=== PATIENT | female | born 1995 | race Caucasian/White ===

== ENCOUNTER 2022-03-15 17:59 | Emergency (ER) | payer OTHER ==
[~2022-03-15] VITALS: Ht 157.5 cm; Wt 41.8 kg
[2022-03-15 18:20] VITALS: BP 109/66
[2022-03-15] MEDS ORDERED: ketorolac trometh inj. 60 MG/2 ML VIAL IM ONE (18:50)
[2022-03-15] MEDS ORDERED: LIDO700A32 TOP (18:52)
[2022-03-15] MEDS ORDERED: KETO10TA2 PO (18:52)
== END 2022-03-15 19:11 | disposition home or self-care (01) ==
LOC: ER 18:00
DX: S29.8XXA Other specified injuries of thorax, initial encounter (principal); X58.XXXA Exposure to other specified factors, initial encounter; Y93.89 Activity, other specified; Y92.89 Other specified places as the place of occurrence of the external cause; Y99.8 Other external cause status
CPT/HCPCS: 96372; 99283; J1885